=== PATIENT | male | born 1995 | race Caucasian/White ===

== ENCOUNTER 2019-02-27 09:25 | Emergency (ER) | payer SELFPAY ==
[2019-02-27 09:57] VITALS: BP 124/76
--- NOTE | 2019-02-27 10:08 | UC ---
Throat Pain/Nasal Alejandro HPI - HPI Summary HPI Summary: 23 old male with sore throat and body aches the past 2-3 days. Unsure if he had fever. - History of Current Complaint Chief Complaint: UCGeneralIllness Stated Complaint: SORE THROAT,COUGH Time Seen by Provider: 02/27/19 09:57 Hx Obtained From: Patient Onset/Duration: Gradual Onset Severity: Mild Pain Intensity: 8 Cough: Productive - Occasionally Productive of yellow sputum. - Epiglottits Risk Factors Epiglottis Risk Factors: Negative - Allergies/Home Medications Allergies/Adverse Reactions: Allergies Allergy/AdvReac Type Severity Reaction Status Date / Time No Known Allergies Allergy Verified 02/27/19 09:57 Home Medications: Home Medications NK [No Home Medications Reported] 02/27/19 [History Confirmed 02/27/19] PMH/Surg Hx/FS Hx/Imm Hx Previously Healthy: Yes - Surgical History Surgical History: None - Family History Known Family History: Positive: Non-Contributory - Social History Alcohol Use: None Substance Use Type: None Smoking Status (MU): Never Smoked Tobacco Review of Systems All Other Systems Reviewed And Are Negative: Yes Constitutional: Positive: Chills ENT: Positive: Sore Throat Respiratory: Positive: Cough - Occasionally productive cough of yellow sputum. Cardiovascular: Positive: Negative Is Patient Immunocompromised?: No Physical Exam Triage Information Reviewed: Yes Completion Of Physical Exam Limited Due To: Other - Obesity Appearance: Well-Appearing, No Pain Distress, Well-Nourished Vital Signs: Initial Vital Signs Temp 98.9 F 02/27/19 09:46 Pulse 102 02/27/19 09:46 Resp 18 02/27/19 09:46 BP 124/76 02/27/19 09:46 Pulse Ox 98 02/27/19 09:46 Vital Signs Reviewed: Yes Eye Exam: Normal ENT: Positive: Pharyngeal erythema, TM red - Left tympanic membrane is erythematous but with good landmarks and light reflex. Right Tympanic membranes pearly deal with good landmarks and light reflex., Tonsillar exudate - Minimal amount of exudate, uvula is midline., Uvula midline. Negative: Trismus, Muffled voice, Hoarse voice Respiratory: Positive: Lungs clear, Normal breath sounds, No respiratory distress, No accessory muscle use Cardiovascular: Positive: RRR, No Murmur, Pulses Normal, Brisk Capillary Refill Musculoskeletal Exam: Normal Neurological Exam: Normal Psychological Exam: Normal Skin Exam: Normal Throat Pain/Nasal Course/Dx - Course Course Of Treatment: Rapid strep test: negative Pt given work note for 2 days. - Differential Dx/Diagnosis Provider Diagnosis: Pharyngitis Discharge - Sign-Out/Discharge Documenting (check all that apply): Patient Departure All imaging exams completed and their final reports reviewed: No Studies - Discharge Plan Condition: Fair Disposition: HOME Patient Education Materials: Pharyngitis (ED) Forms: *Work Release Referrals: [facility] [Outside] No Primary Care Phys,NOPCP [Primary Care Provider] - Additional Instructions: Increase fluids, rest, follow-up with her primary care provider if no improvement in 3 or 4 days. Throat lozenges, warm saltwater gargles. - Billing Disposition and Condition Condition: FAIR Disposition: Home
== END 2019-02-27 10:29 | disposition home or self-care (01) ==
LOC: UCCORT 09:25
DX: J02.9 Acute pharyngitis, unspecified (principal); R05 Cough; M79.10 Myalgia, unspecified site
CPT/HCPCS: 87651; 99201; G0463